=== PATIENT | male | born 1990 | race Caucasian/White ===

== ENCOUNTER 2017-05-17 01:49 | Emergency (ER) | payer OTHER ==
[2017-05-17 02:05] LABS: EOSINOPHIL (%) 0.4 % (0-5); HEMATOCRIT 43.3 % (38.0-50.0); IMMATURE GRANULOCYTE (%) 0.4 % (0.0-0.7); INSTRUMENT ABS NEUTROPHIL CT 5.1 K/uL; LYMPHOCYTE COUNT 1.6 K/uL (1.0-2.8); MCH 32.1 PG (29.0-34.0); MCHC 34.6 G/DL (30.0-36.0); MCV 92.5 FL (86-99); MEAN PLAT.VOLUME 10.3 uM^3 (9.0-12.4); MONOCYTE (%) 4.5 % (3-12); MONOCYTE COUNT 0.3 K/uL (0-0.8); NEUTROPHIL COUNT 5.1 K/uL (1.8-6.4); PLATELET COUNT 248 K/uL (156-360); RBC DIS.WIDTH-CV 11.7 % (11.8-14.6); RBC DIS.WIDTH-SD 39.4 % (39-53); RED BLOOD COUNT 4.68 M/uL (4.00-5.50); WHITE BLOOD COUNT 7.1 K/uL (4.1-10.2)
[2017-05-17 02:15] LABS: AMYLASE 46 IU/L (1-118); CHLORIDE 109 mEq/L (99-109); SODIUM 141 mEq/L (136-147)
[2017-05-17 02:16] LABS: GLUCOSE 111 mg/dL (70-99)
[2017-05-17 02:18] LABS: ANION GAP 12 MEQ/L (2-14)
[2017-05-17 02:20] LABS: SERUM ETHYL ALCOHOL 262 mg/dL
[2017-05-17 02:21] LABS: UREA NITROGEN (BUN) 10 mg/dL (9-23)
[2017-05-17 02:23] LABS: LIPASE 7 U/L (1.0-51.0)
[2017-05-17 02:28] LABS: GFR ESTIMATE (CALCULATED) > 59 mL/min/ (58.99-99999)
[2017-05-17 02:30] LABS: ADD MIUA? YES; BILIRUBIN NEGATIVE; BLOOD SMALL; COLOR COLORLESS ((YELLOW)); GLUCOSE (STRIP) NEGATIVE; KETONES NEGATIVE; LEUKOCYTES NEGATIVE; NITRITE NEGATIVE; PROTEIN (STRIP) NEGATIVE; SPECIFIC GRAVITY 1.003 (1.000-1.030); UROBILINOGEN 0.2 MG/DL (0.2-1.0)
[2017-05-17 02:33] LABS: BACTERIA NONE SEEN /HPF; EPITHELIAL CELLS RARE /HPF; MUCUS NONE SEEN /LPF; RED BLOOD CELLS 0-5 /HPF (0-5); UCUL ADDED? NO; WHITE BLOOD CELLS 0-5 /HPF (0-5)
[2017-05-17 02:39] LABS: AMPHETAMINE NEGATIVE (500 ng/mL); BARBITURATES NEGATIVE (200 ng/mL); BENZODIAZEPINES NEGATIVE (150 ng/mL); COCAINE NEGATIVE (150 ng/mL); INTERNAL CONTROLS VALID? YES; METHADONE NEGATIVE (200 ng/mL); METHAMPHETAMINE NEGATIVE (500 ng/mL); OPIATES (MORPHINE) NEGATIVE (100 ng/mL); OXYCODONE NEGATIVE (100 ng/mL); PHENCYCLIDINE NEGATIVE (25 ng/mL); PROPOXYPHENE NEGATIVE (300 ng/mL); THC CANNABINOIDS NEGATIVE (50 ng/mL); TRICYCLIC ANTIDEPRESSANTS NEGATIVE (300 ng/mL)
[2017-05-17] MEDS ORDERED: AUGMENTIN875 MG PO (08:56)
[2017-05-17] MEDS ORDERED: PERIDEX473 ML MM (08:56)
[2017-05-17] MEDS ORDERED: PERCOCET 5/31 TABLET PO (08:56)
== END 2017-05-17 09:33 | disposition left against medical advice (07) ==
LOC: TRA 01:49
PROVIDERS: Emergency Medicine
DX: S02.609A Fracture of mandible, unspecified, initial encounter for closed fracture (principal); V57.1XXA Passenger in pick-up truck or van injured in collision with fixed or stationary object in nontraffic accident, initial encounter; S00.01XA Abrasion of scalp, initial encounter; S40.212A Abrasion of left shoulder, initial encounter; S80.211A Abrasion, right knee, initial encounter; S80.212A Abrasion, left knee, initial encounter; S60.512A Abrasion of left hand, initial encounter; M54.2 Cervicalgia; Z88.0 Allergy status to penicillin
CPT/HCPCS: 70450; 71010; 71260; 72125; 72141; 72170; 74177; 80048; 81003; 82150; 83690; 85025; 86850; 86900; 86901; 99281; 99285; G0480